=== PATIENT | male | born 1960 | race Caucasian/White ===

== ENCOUNTER → 2023-09-26 09:05 | Outpatient (REF) | payer BC, SELFPAY | LOC: RCS 09:05 | PROVIDERS: ATTENDING PHYSICIAN Internal Medicine Cardiovascular Disease; FAMILY PHYSICIAN Family Medicine | DX: I25.2 Old myocardial infarction (principal) | CPT/HCPCS: 93017; 93350 ==

== ENCOUNTER 2024-05-07 06:18 | Day surgery (SDC) | payer BC, SELFPAY | END 2024-05-17 14:31 | disposition home or self-care (01) | LOC: GI 06:18 | PROVIDERS: ATTENDING PHYSICIAN Internal Medicine Gastroenterology | DX: Z12.11 Encounter for screening for malignant neoplasm of colon (principal); K57.30 Diverticulosis of large intestine without perforation or abscess without bleeding; K64.8 Other hemorrhoids; D12.3 Benign neoplasm of transverse colon | CPT/HCPCS: 45380; 88305 ==